=== PATIENT | male | born 1975 | race Caucasian/White ===

== ENCOUNTER 2020-06-11 08:52 | Emergency (ER) | payer OTHER, SELFPAY ==
[~2020-06-11] VITALS: Ht 180.3 cm; Wt 85.7 kg
[2020-06-11] MEDS ORDERED: ABILIFY10 MG ORAL (09:04)
[2020-06-11] MEDS ORDERED: ZOLOFT100 MG ORAL (09:04)
[2020-06-11] MEDS ORDERED: ZOLOFT50 MG ORAL (09:04)
--- NOTE | 2020-06-11 09:06 | Emergency Room Report ---
History of Present Illness General Chief Complaint: Medication Refill Source: Patient Present Illness HPI Disclaimer: Please note that this report is being documented using [employer] technology. This can lead to erroneous entry secondary to incorrect interpretation by the dictating instrument. HPI: 44-year-old male history of depression and bipolar disorder presents requesting medication refill. The patient takes 150 mg Zoloft and 10 mg Abilify daily. He has been on this regimen for several years. Recently had a change of insurance and requiring him to change primary care doctors. Unable to get a refill thus far. Scheduled to see his new PMD in 2 weeks. Ran out of medication 2 days ago. Denies suicidality, homicidality, changes in behavior otherwise. 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 EOMI. Resp: Normal work of breathing Skin: Intact. No abrasions, laceration or rash over the exposed skin MSK: Normal tone and bulk. Moving all extremities. No obvious deformity. Neuro: Awake and alert. Mentating appropriately. Denies SI/HI Medical Decision Making Diagnostic Impression: Primary Impression: Encounter for medication refill ER Course 44-year-old male presents requesting medication refill of his Abilify and sertraline. Patient is awake alert, reasonable denies SI/HI. Will provide a 2- week refill until he can see his new PMD. Instructed to return with new or worsening symptoms. Understands and agrees with this treatment plan. Last Vital Signs Date Time Temp Pulse Resp B/P (MAP) Pulse Ox O2 Delivery O2 Flow Rate FiO2 06/11/20 08:56 97.9 72 20 119/65 (83) 94 Room Air Disposition: HOME, SELF-CARE Condition: Stable Scripts Aripiprazole* (ABILIFY*) 10 Mg Tablet 10 MG ORAL DAILY for 14 Days, #14 TAB Prov: Eduin Pope MD 06/11/20 Sertraline Hcl* (ZOLOFT*) 100 Mg Tablet 100 MG ORAL DAILY for 14 Days, #1 TAB Prov: Eduin Pope MD 06/11/20 Sertraline Hcl* (ZOLOFT*) 50 Mg Tablet 50 MG ORAL DAILY for 14 Days, #14 TAB Prov: Eduin Pope MD 06/11/20 Patient Instructions: Medicine Refill at the Emergency Department Additional Instructions: Please follow-up with your primary care doctor as soon as possible to discuss this emergency department visit and for reevaluation. If you have any new or worsening symptoms please return to the emergency department for reevaluation. Please note that this report is being documented using [employer] technology. This can lead to erroneous entry secondary to incorrect interpretation by the dictating instrument. Eduin Pope MD Jun 11, 2020 09:06
[2020-06-11 09:11] VITALS: BP 121/66
== END 2020-06-11 09:15 | disposition home or self-care (01) ==
LOC: EMR 09:10
DX: Z76.0 Encounter for issue of repeat prescription (principal); F41.9 Anxiety disorder, unspecified; F32.9 Major depressive disorder, single episode, unspecified
CPT/HCPCS: 99282